=== PATIENT | male | born 1990 | race Two or more races ===

== ENCOUNTER 2017-02-23 16:15 | Emergency (ER) | payer OTHER ==
[~2017-02-23] VITALS: Ht 172.7 cm; Wt 106.4 kg
[2017-02-23 16:58] VITALS: BP 148/98
== END 2017-02-23 17:11 | disposition home or self-care (01) ==
LOC: ER 16:24
DX: G89.29 Other chronic pain (principal); M79.642 Pain in left hand

== ENCOUNTER 2017-03-16 11:24 | Emergency (ER) | payer OTHER ==
[~2017-03-16] VITALS: Ht 172.7 cm; Wt 99.8 kg
[2017-03-16 11:54] VITALS: BP 141/70
== END 2017-03-16 12:17 | disposition home or self-care (01) ==
LOC: ER 11:24
DX: M79.602 Pain in left arm (principal)

== ENCOUNTER 2023-06-17 00:05 | Emergency (ER) | payer MEDICAID, OTHER ==
[~2023-06-17] VITALS: Ht 172.7 cm; Wt 95.5 kg
[2023-06-17] MEDS ORDERED: IOHEXOL 350 MG/ML 100ML IJ ONE (01:54)
[2023-06-17] MEDS ORDERED: MUPI2OIN2 EX (03:40)
[2023-06-17] MEDS ORDERED: IBUP1TAB5 PO (03:40)
[2023-06-17] MEDS ORDERED: CEPH500C PO (03:40)
[2023-06-17] MEDS ORDERED: CYCL-611 PO (03:40)
[2023-06-17] MEDS ORDERED: TETANUS-DIPTH-ACEL PERTUSSIS 0.5ML SYR Tdap IM ONE (03:45)
[2023-06-17] MEDS ORDERED: HYDROcodone-ACET 5/325MG TAB PO ONE (03:45)
[2023-06-17] MEDS ORDERED: NEOMYCIN-BACITRACIN-POLYM UNITDOSE PKG TOP OINT TOP ONE (03:45)
[2023-06-17 04:37] VITALS: BP 155/95; PULSE 82; RESP 16; TEMP 98.8; O2SAT 99
== END 2023-06-17 04:43 | disposition home or self-care (01) ==
LOC: ER 00:05
DX: S02.5XXA Fracture of tooth (traumatic), initial encounter for closed fracture (principal); S13.9XXA Sprain of joints and ligaments of unspecified parts of neck, initial encounter; S83.92XA Sprain of unspecified site of left knee, initial encounter; S00.03XA Contusion of scalp, initial encounter; S00.83XA Contusion of other part of head, initial encounter; S00.531A Contusion of lip, initial encounter; R51.9 Headache, unspecified; M54.2 Cervicalgia; V19.9XXA Pedal cyclist (driver) (passenger) injured in unspecified traffic accident, initial encounter; Y93.89 Activity, other specified; Y92.89 Other specified places as the place of occurrence of the external cause; Y99.8 Other external cause status
CPT/HCPCS: 70450; 70486; 72125; 73130; 90471; 90715